=== PATIENT | female | born 1970 | race American Indian/Alaskan Native ===

== ENCOUNTER 2022-02-28 16:02 | Emergency (ER) | payer MEDICAID | END 2022-02-28 19:05 | disposition home or self-care (01) | LOC: DL.ED 16:02 | DX: S52.92XA Unspecified fracture of left forearm, initial encounter for closed fracture (principal); E66.9 Obesity, unspecified; W01.0XXA Fall on same level from slipping, tripping and stumbling without subsequent striking against object, initial encounter | CPT/HCPCS: 29125; 73110-LT; 99283-25; 99284 ==